=== PATIENT | male | born 1980 | race Asian ===

== ENCOUNTER 2023-12-06 19:41 | Inpatient (IN) | payer OTHER ==
[2023-12-06 21:40] VITALS: BMI 20.3
[2023-12-06] MEDS ORDERED: BENZONATATE 200 MG CAPSULE PO PRN (21:59)
[2023-12-06] MEDS ORDERED: LOPERAMIDE HCL 2 MG CAPSULE PO PRN (21:59)
[2023-12-06] MEDS ORDERED: NALOXONE HCL 0.4 MG/ML VIAL IM PRN (21:59)
[2023-12-06] MEDS ORDERED: ACETAMINOPHEN 325 MG TABLET (FP) PO PRN (21:59)
[2023-12-06] MEDS ORDERED: MAGNESIUM HYDROX 2400MG/30ML ORAL SUSPENSION 30 ML CUP PO PRN (21:59)
[2023-12-06] MEDS ORDERED: DICYCLOMINE HCL 10 MG CAPSULE PO PRN (21:59)
[2023-12-06] MEDS ORDERED: NALOXONE HCL (KLOXXADO) 8 MG SPRAY NS PRN (21:59)
[2023-12-06] MEDS ORDERED: ONDANSETRON *ODT* 4 MG TABLET SL PRN (21:59)
[2023-12-06] MEDS ORDERED: NICOTINE POLACRILEX 2 MG LOZENGE BC PRN (21:59)
[2023-12-06] MEDS ORDERED: hydrOXYzine PAMOATE 25 MG CAPSULE (FP) PO PRN (21:59)
[2023-12-06] MEDS ORDERED: MAG HYDROX/AL HYDROX/SIMETH 30 ML UNIT-DOSE CUP PO PRN (21:59)
[2023-12-06] MEDS ORDERED: BENZOCAINE/MENTHOL (CHLORASEPTIC ) LOZENGE MM PRN (21:59)
[2023-12-06] MEDS ORDERED: POLYETHYLENE GLYCOL (HEALTHYLAX) 3350 17 GM PACKET PO PRN (21:59)
[2023-12-06] MEDS ORDERED: BISMUTH SUBSALICYLATE 524 MG/30 ML PO PRN (21:59)
[2023-12-06] MEDS ORDERED: IBUPROFEN 400 MG TABLET (FP) PO PRN (21:59)
[2023-12-06] MEDS ORDERED: guaiFENesin 600 MG TABLET.ER (FP) PO PRN (21:59)
[2023-12-06] MEDS ORDERED: IBUPROFEN 600 MG TABLET (FP) PO PRN (21:59)
[2023-12-07] MEDS: THIAMINE HCL 100 MG TABLET (FP) PO SCH ×2 (03:13→22:05)
[2023-12-07] MEDS: MELATONIN 5 MG TABLETS PO SCH ×2 (03:13→22:05)
[2023-12-07] MEDS: PRENATAL VITAMINS W/ FOLIC ACID TABLET (FP) PO SCH (09:26)
[2023-12-07] MEDS: NICOTINE 21 MG/24 HOURS TOPICAL PATCH TD SCH (09:26)
[2023-12-07 11:32] LABS: CHLORIDE 111 mmol/L (98-107); POTASSIUM 4.5 mmol/L (3.5-5.1); SODIUM 142 mmol/L (136-145)
[2023-12-07 11:34] LABS: HEMOGLOBIN 12.3 GM/dL (11.7-16.9); MCH 28.4 pg (25.7-33.7); MCHC 32.4 g/dl (32.0-35.9); MEAN CELL VOLUME 87.6 fl (80-96); MEAN PLT VOLUME 8.5 fl (7.5-11.1); PLATELET COUNT 257 10^3/uL (134-434); RBC 4.34 M/mm3 (4.00-5.60); WHITE BLOOD COUNT 6.6 K/mm3 (4.0-10.0)
[2023-12-07 11:35] LABS: ALBUMIN 3.4 g/dl (3.4-5.0); ANION GAP 6 mmol/L (4-13); BLOOD UREA NITROGEN 18.3 mg/dL (7-18); CALCIUM 9.3 mg/dL (8.5-10.1); CO2 25 mmol/L (21-32); GLUCOSE,RANDOM 105 mg/dL (74-106)
[2023-12-07 11:38] LABS: CREATININE 0.9 mg/dL (0.55-1.3); SGOT/AST 19 U/L (15-37); SGPT/ALT 30 U/L (13-61)
[2023-12-07 11:40] LABS: BILIRUBIN,TOTAL 0.2 mg/dL (0.2-1); TOT PROT 6.5 g/dl (6.4-8.2)
[2023-12-07 11:41] LABS: ALK PHOS 69 U/L (45-117)
[2023-12-07] MEDS: OLANZapine 10 MG TABLET PO SCH (12:27)
[2023-12-07] MEDS ORDERED: P-EPHED 60MG/TRIPROLIDI 2.5MG TABLET PO PRN (16:03)
[2023-12-08] MEDS: PRENATAL VITAMINS W/ FOLIC ACID TABLET (FP) PO SCH (09:53)
[2023-12-08] MEDS: OLANZapine 10 MG TABLET PO SCH (09:53)
[2023-12-08] MEDS: NICOTINE 21 MG/24 HOURS TOPICAL PATCH TD SCH (09:53)
[2023-12-08] MEDS: THIAMINE HCL 100 MG TABLET (FP) PO SCH (22:13)
[2023-12-08] MEDS: MELATONIN 5 MG TABLETS PO SCH (22:13)
[2023-12-09] MEDS: PRENATAL VITAMINS W/ FOLIC ACID TABLET (FP) PO SCH (10:27)
[2023-12-09] MEDS: OLANZapine 10 MG TABLET PO SCH (10:27)
[2023-12-09] MEDS: NICOTINE 21 MG/24 HOURS TOPICAL PATCH TD SCH (10:27)
[2023-12-09] MEDS: MELATONIN 5 MG TABLETS PO SCH (21:48)
[2023-12-09] MEDS: THIAMINE HCL 100 MG TABLET (FP) PO SCH (21:48)
[2023-12-10] MEDS: OLANZapine 10 MG TABLET PO SCH (09:59)
[2023-12-10] MEDS: NICOTINE 21 MG/24 HOURS TOPICAL PATCH TD SCH (09:59)
[2023-12-10] MEDS: PRENATAL VITAMINS W/ FOLIC ACID TABLET (FP) PO SCH (09:59)
[2023-12-10] MEDS: METHOCARBAMOL 500 MG TABLET PO PRN ×2 (09:59→21:33)
[2023-12-10] MEDS: THIAMINE HCL 100 MG TABLET (FP) PO SCH (21:33)
[2023-12-10] MEDS: MELATONIN 5 MG TABLETS PO SCH (21:33)
[2023-12-11] MEDS: NICOTINE 21 MG/24 HOURS TOPICAL PATCH TD SCH (10:21)
[2023-12-11] MEDS: PRENATAL VITAMINS W/ FOLIC ACID TABLET (FP) PO SCH (10:21)
[2023-12-11] MEDS: OLANZapine 10 MG TABLET PO SCH (10:21)
[2023-12-11 13:23] VITALS: BP 119/77; PULSE 92; RESP 19; TEMP 98.7
== END 2023-12-11 14:45 | disposition other institution (70) | DRG 896 ==
LOC: YASAS 19:41 → UNDOADMIN 12-07 03:06 → Y3N 12-07 03:06
PROVIDERS: ADMIT Allergy & Immunology; ATTEND Surgery
PROC: HZ2ZZZZ Detoxification Services for Substance Abuse Treatment (ICD-10-PCS; principal; 2023-12-07)
DX: F10.20 Alcohol dependence, uncomplicated (principal); U07.1 COVID-19; F14.20 Cocaine dependence, uncomplicated; F19.282 Other psychoactive substance dependence with psychoactive substance-induced sleep disorder; F12.20 Cannabis dependence, uncomplicated; F17.210 Nicotine dependence, cigarettes, uncomplicated; F25.9 Schizoaffective disorder, unspecified; F19.24 Other psychoactive substance dependence with psychoactive substance-induced mood disorder; Z88.8 Allergy status to other drugs, medicaments and biological substances
CPT/HCPCS: 0241U-QW; 36415; 80053; 80307; 85027; 86780; 87635; 87811; 93005; 93010